=== PATIENT | male | born 1995 | race Caucasian/White ===

== ENCOUNTER 2023-01-28 10:36 | Emergency (ER) | payer SELFPAY ==
[2023-01-28 10:45] VITALS: BP 134/76; PULSE 96; RESP 16; TEMP 36.2; O2SAT 99; BMI 23.5
--- NOTE | 2023-01-28 11:57 | ED_ITS ---
HPI - Ear Problem General Chief complaint: Ear/Nose/Throat Problem Stated complaint: Ear pain Time Seen by Provider: 01/28/23 11:25 History of Present Illness HPI Narrative: This 27-year-old male comes in reporting left ear pain over the past 3 or 4 days. He does not describe any cough for fever symptoms. He does not have nasal congestion. He states that he does use a irrigation of his ear to clear out wax but this has become painful. Related Data Previous Rx's Medication Instructions Recorded amoxicillin 500 mg capsule 500 mg PO TID 10 days #30 caps 01/28/23 Allergies Allergy/AdvReac Type Severity Reaction Status Date / Time No Known Drug Allergies Allergy Verified 01/28/23 10:44 Review of Systems Status of ROS: Reports: 10 or more systems reviewed and unremarkable except as noted in History and below Narrative: Constitutional: No fevers, no weight gain or loss. Eyes: No discharge. No vision changes. HENT: No congestion, no sore throat. Left ear pain as described above. Cardiovascular: No chest pain, no palpitations. Respiratory: No shortness of breath, no wheezes, no cough. Gastrointestinal: No abdominal pain, no vomiting, no diarrhea. Genitourinary: No dysuria, no hematuria. Musculoskeletal: Normal range of motion. Skin: No rashes, no pruritis. Neurological: No dizziness, weakness, sensory change, speech change. Endo/Heme/Allergies: No bruising or bleeding. No polydipsia. Pysch: no suicidality, no anxiety, no insomnia. All other systems reviewed and are negative. PFSH PFS Social History Smoking Status: Never smoker Do you use any of these nicotine containing products: Vaping Products How often do you have a drink containing alcohol: monthly or less AUDIT-C Alcohol total score: 1 Non-prescribed substance use: denies use service: No Exam Narrative: Exam Narrative: Constitutional: Well-developed, well-nourished, no acute distress. HEENT: Normocephalic, atraumatic. Right tympanic membrane appears normal. Left tympanic membrane has dullness and purulence. Neck: Normal range of motion. Nontender. Supple. Heart: Intact distal pulses. Lungs: No chest discomfort. No wheezes, rhonchi, or rales. Abdomen: Nontender. Back: Normal range of motion. Extremities: Normal range of motion. No injury. Skin: Intact. No rash. Warm. No erythema or pallor. Neurologic: No altered sensation. No weakness. Alert and oriented. Psychiatric: No suicidality. No anxiety or depression. No insomnia. Nursing notes and vitals signs are reviewed. Const: Vital Signs, click to edit/add: Vital Signs - 24 hr 01/28/23 10:45 Temperature 97.1 F L Pulse Rate [Right Pulse Oximeter] 96 Respiratory Rate 16 Blood Pressure [Ri ght Upper Arm] 134/76 Pulse Oximetry 99 Oxygen Delivery Me thod Room Air Course Vital Signs Vital signs: Initial Vital Signs Temperature 97.1 F L 01/28/23 10:45 Temperature Source Temporal Artery Scan 01/28/23 10:45 Pulse Rate 96 01/28/23 10:45 Pulse Rhythm Regular 01/28/23 10:45 Respiratory Rate 16 01/28/23 10:45 Blood Pressure 134/76 01/28/23 10:45 Blood Pressure Mean 95 01/28/23 10:45 Blood Pressure Position Sitting 01/28/23 10:45 Pulse Oximetry 99 01/28/23 10:45 Oxygen Delivery Method Room Air 01/28/23 10:45 Vital Signs Temperature 97.1 F L 01/28/23 10:45 Pulse Rate 96 01/28/23 10:45 Respiratory Rate 16 01/28/23 10:45 Blood Pressure 134/76 01/28/23 10:45 Pulse Oximetry 99 01/28/23 10:45 Oxygen Delivery Method Room Air 01/28/23 10:45 Temperature 97.1 F L 01/28/23 10:45 Pulse Rate 96 01/28/23 10:45 Respiratory Rate 16 01/28/23 10:45 Blood Pressure 134/76 01/28/23 10:45 Pulse Oximetry 99 01/28/23 10:45 Oxygen Delivery Method Room Air 01/28/23 10:45 Medical Decision Making MDM Narrative Medical decision making narrative: This patient comes in with left ear pain and has findings on exam that are typic al of otitis media. He received a prescription for amoxicillin. Discharge Plan Discharge Clinical Impression: Otitis media Condition: Stable Additional Instructions: Take medication as prescribed. Use [id number] medicines also as needed and directed. Follow up with MD or return if worsening. Prescriptions: New amoxicillin 500 mg capsule 500 mg PO TID 10 Days Qty: 30 0RF Follow Up/Referrals: Jakob Branch MD [Primary Care Provider] - Stand Alone Forms: USINE IO Info Instructions
== END 2023-01-28 12:21 | disposition home or self-care (01) ==
PROVIDERS: Emergency Provider Emergency Medicine Emergency Medical Services; PCP Family Medicine
DX: H66.92 Otitis media, unspecified, left ear (principal)
CPT/HCPCS: 99283; 99284